=== PATIENT | female | born 1975 | race Caucasian/White ===

== ENCOUNTER 2016-06-18 23:59 | Emergency (ER) | payer OTHER ==
[2016-06-19 01:43] LABS: BASOPHIL % 1.4 % (0-2); PLATELET COUNT 308 x10^3mcL (130-400); RED CELL DISTRIBUTION WIDTH 13.3 % (11.5-14.5)
[2016-06-19 01:52] LABS: CARBON DIOXIDE 26.1 mmol/L (21-32); CHLORIDE SERUM 106 mmol/L (98-107); CREATININE SERUM 0.7 mg/dL (0.6-1.0); GFR1 > 60 mL/min; GLUCOSE SERUM 105 mg/dL (74-106); POTASSIUM SERUM 3.8 mmol/L (3.5-5.1); SODIUM SERUM 142 mmol/L (136-145)
[2016-06-19 01:57] LABS: ALKALINE PHOSPHATASE 63 U/L (46-116); ALT/SGPT 21 U/L (14-59); AST/SGOT 14 U/L (15-37); BILIRUBIN TOTAL 0.32 mg/dL (0.20-1.00); TOTAL PROTEIN, SERUM 7.7 g/dL (6.4-8.2)
[2016-06-19 02:11] LABS: CK-MB < 0.5 ng/mL (0-3.6); CREATINE KINASE 52 U/L (26-192)
[2016-06-19 02:28] VITALS: BP 125/85
== END 2016-06-19 02:28 | disposition home or self-care (01) ==
LOC: ED 23:59
PROVIDERS: Emergency Medicine
DX: F41.9 Anxiety disorder, unspecified (principal)
CPT/HCPCS: Q0092